=== PATIENT | female | born 2000 | race Caucasian/White ===

== ENCOUNTER 2021-05-25 08:44 | Emergency (ER) | payer BC ==
--- OUTSIDE RECORDS SUMMARY | 2021-05-25 08:46 | XMS REPORT | Continuity of Care Document ---
:2000 Author Organization [facility] t Address [address] [place] [address] Care Team Providers Name Role Phone Unavailable Unavailable Unavailable Problems Condition Condition Condition Status Onset Resolution Last Treating Co mments Source Name Details Category Date Date Treatment Clinician Date Encounter Encounter Diagnosis Active [facility] [place] [facility] Allergies, Adverse Reactions, Alerts This patient has no known allergies or adverse reactions. Medications This patient has no known medications. Immunizations Ordered Filled Immunization Date Status Comments [facility] e Immunization Name Name Flu Quadrivalent PF Flu Quadrivalent PF 2019-06-[address] [facility] 0.5 ml IM 0.5 ml IM 00:00:00 [facility] Procedures This patient has no known procedures. Encounters Start End Encounter Admission Attending Care Care Encounter Source Date/Time Date/Time Type Type Clinicians Facility Department ID 2019-06-27 2019-06-27 Outpatient Onel Siegel [id number] [facility] [address] 10:00:00 10:00:00 [facility] Results This patient has no known results.
[2021-05-25 10:05] LABS: SARS-COV-2 RT PCR NEGATIVE (NEGATIVE)
--- NOTE | 2021-05-25 10:09 | ER ---
Nurse's Notes [facility] Name: Ewa Cunningham Age: 21 yrs Sex: Female : 2000 Arrival Date: 05/25/2021 Time: 08:47 Bed 6 Private MD: Diagnosis: Rash and other nonspecific skin eruption;Acute pharyngitis, unspecified;Viral infection, unspecified Presentation: 05/25 08:56 Chief complaint: Patient states: sore throat and rash x2 days. Coronavirus screen: weiss Vaccine status: Patient reports receiving the 2nd dose of the covid vaccine. Ebola Screen: Patient denies travel to an Ebola-affected area in the 21 days before illness onset. No symptoms or risks identified at this time. Initial Sepsis Screen: Does the patient meet any 2 criteria? No. Patient's initial sepsis screen is negative. Does the patient have a suspected source of infection? No. Patient's initial sepsis screen is negative. Risk Assessment: Do you want to hurt yourself or someone else? Patient reports no desire to harm self or others. Onset of symptoms was May 23, 2021. 08:56 Method Of Arrival: Ambulatory weiss 08:56 Acuity: [place] 3 weiss Triage Assessment: 08:57 General: Appears in no apparent distress. Behavior is calm, cooperative. Pain: weiss Complains of pain in mouth. EENT: Reports pain throat Pain is 6 out of 10 on a pain scale. 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 - Social history:: Smoking status: Patient denies any tobacco usage or history of. Screenin:59 Abuse screen: Denies threats or abuse. Denies injuries from another. Nutritional weiss screening: No deficits noted. Tuberculosis screening: No symptoms or risk factors identified. Fall Risk None identified. Assessment: 08:59 Respiratory: Airway is patent Respiratory effort is even, unlabored, Breath sounds are weiss clear. EENT: Throat is reddened. Vital Signs: 08:56 BP 121 / 73; Pulse 97; Resp 18; Temp 97.9; Pulse Ox 100% on R/A; iw 09:15 BP 119 / 48; Pulse 89; Resp 16 S; Pulse Ox 98% on R/A; jg9 10:16 BP 121 / 70; Pulse 84; Resp 18; Pulse Ox 98% on R/A; weiss ED Course: 08:47 Patient arrived in ED. ds1 08:52 Rom Medina MD is Attending Physician. kdr 08:56 Chanel Florian is Primary Nurse. weiss 08:57 Triage completed. weiss 08:57 Arm band placed on right wrist. weiss 08:59 Patient has correct armband on for positive identification. Bed in low position. weiss 08:59 No provider procedures requiring assistance completed. weiss 09:18 Group A Streptococcus Rapid Sc Sent. weiss 09:18 Strep Sent. weiss 10:17 Patient did not have IV access during this emergency room visit. weiss Administered Medications: No medications were administered Outcome: 10:08 Discharge ordered by . kdr 10:16 Discharged to home ambulatory. weiss 10:16 Condition: good 10:16 Discharge instructions given to patient. 10:17 Patient left the ED. weiss Signatures: Rom Medina MD MD kdr Ceja, [facility] ds1 Ashly Bowden, RN RN Hortencia Mcdonnell Heather weiss Corrections: (The following items were deleted from the chart) 09:10 08:56 BP 121 / 73; Pulse 97bpm; Resp 18bpm; Pulse Ox 100% RA; weiss iw 09:25 09:18 CORONAVIRUS+MR.LAB.BRZ drawn and sent. weiss EDMS 09:25 09:18 Influenza Screen (A \T\ B)+BA.LAB.BRZ drawn and sent. weiss EDMS
--- NOTE | 2021-05-25 10:09 | EDPHYS ---
Physician Documentation [facility] Name: Ewa Cunningham Age: 21 yrs Sex: Female : 2000 Arrival Date: 05/25/2021 Time: 08:47 Bed 6 Private MD: ED Physician Rom Medina HPI: 05/25 09:34 This 21 yrs old Female presents to ER via Ambulatory with complaints of Sore Throat. kdr 09:34 The patient presents with sore throat. The patient presents with dysphagia, of both kdr solids and liquids. The patient describes throat pain as burning, constant, raw, scratchy. Onset: The symptoms/episode began/occurred gradually, 2 day(s) ago. Severity of symptoms: At their worst the symptoms were mild, in the emergency department the symptoms are unchanged. Modifying factors: The symptoms are alleviated by nothing, the symptoms are aggravated by swallowing, Patient's oral intake status: good. Associated signs and symptoms: Pertinent positives: Diffuse rash. The patient has not experienced similar symptoms in the past. 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 Patient presents with 3 to 4 days of rash and 2 days of sore throat. She denies fever cough cold or congestion. She was ill with Covid several months ago and recovered without sequela. She was seen by dermatology for the rash on Sunday. She was given a steroid injection and a topical steroid cream patient states that the rash is somewhat better today less red but still somewhat itchy. Patient is nontoxic-appearing is otherwise in good health. 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 - Social history:: Smoking status: Patient denies any tobacco usage or history of. ROS: 09:34 Constitutional: Negative for fever, chills, and weight loss, Eyes: Negative for injury, kdr pain, redness, and discharge, Neck: Negative for injury, pain, and swelling, Cardiovascular: Negative for chest pain, palpitations, and edema, Respiratory: Negative for shortness of breath, cough, wheezing, and pleuritic chest pain, Abdomen/GI: Negative for abdominal pain, nausea, vomiting, diarrhea, and constipation, Back: Negative for injury and pain, : Negative for injury, bleeding, discharge, and swelling, MS/Extremity: Negative for injury and deformity, Neuro: Negative for headache, weakness, numbness, tingling, and seizure activity. Psych: Negative for depression, anxiety, suicide ideation, homicidal ideation, and hallucinations, Allergy/Immunology: Negative for hives, rash, and allergies, Endocrine: Negative for neck swelling, polydipsia, polyuria, polyphagia, and marked weight changes, Hematologic/Lymphatic: Negative for swollen nodes, abnormal bleeding, and unusual bruising. 09:34 ENT: Positive for sore throat, Negative for ear pain, foreign body sensation, Gum pain 09:34 Skin: Positive for rash. Exam: 09:34 Constitutional: This is a well developed, well nourished patient who is awake, alert, kdr and in no acute distress. Head/Face: Normocephalic, atraumatic. Eyes: Pupils equal round and reactive to light, extra-ocular motions intact. Lids and lashes normal. Conjunctiva and sclera are non-icteric and not injected. Cornea within normal limits. Periorbital areas with no swelling, redness, or edema. Chest/axilla: Normal chest wall appearance and motion. Nontender with no deformity. No lesions are appreciated. Cardiovascular: Regular rate and rhythm with a normal S1 and S2. No gallops, murmurs, or rubs. Normal PMI, no JVD. No pulse deficits. Respiratory: Lungs have equal breath sounds bilaterally, clear to auscultation and percussion. No rales, rhonchi or wheezes noted. No increased work of breathing, no retractions or nasal flaring. Abdomen/GI: Soft, non-tender, with normal bowel sounds. No distension or tympany. No guarding or rebound. No evidence of tenderness throughout. Back: No spinal tenderness. No costovertebral tenderness. Full range of motion. 09:34 ENT: External ear(s): are unremarkable, Ear canal(s): are normal, TM's: are normal, Nose: is normal, Posterior pharynx: Tonsils: bilaterally enlarged, Whitish film on the both tonsils uvula midline otherwise minimal swelling, Voice: is normal, Breath odor: is normal. Vital Signs: 08:56 BP 121 / 73; Pulse 97; Resp 18; Temp 97.9; Pulse Ox 100% on R/A; iw 09:15 BP 119 / 48; Pulse 89; Resp 16 S; Pulse Ox 98% on R/A; jg9 10:16 BP 121 / 70; Pulse 84; Resp 18; Pulse Ox 98% on R/A; weiss MDM: 09:34 Data reviewed: vital signs, nurses notes, lab test result(s), radiologic studies. kdr Counseling: I had a detailed discussion with the patient and/or guardian regarding: the historical points, exam findings, and any diagnostic results supporting the discharge/admit diagnosis, lab results, the need for outpatient follow up. 10:08 Patient medically screened. kdr 05/25 08:53 Order name: Strep kdr 05/25 08:54 Order name: Group A Streptococcus Rapid Sc; Complete Time: 09:40 EDCA 05/25 09:23 Order name: Throat Culture EDCA 05/25 09:25 Order name: COVID-19/FLU A+B; Complete Time: 10:06 EDMS Administered Medications: No medications were administered Disposition Summary: 05/25/21 10:08 Discharge Ordered Location: Home kdr Problem: new kdr Symptoms: are unchanged kdr Condition: Stable kdr Diagnosis - Rash and other nonspecific skin eruption kdr - Acute pharyngitis, unspecified kdr - Viral infection, unspecified kdr Followup: kdr - With: Private Physician - When: 2 - 3 days - Reason: If symptoms return, Further diagnostic work-up, Recheck today's complaints, Continuance of care, Re-evaluation by your physician Discharge Instructions: - Discharge Summary Sheet kdr - Strep Throat, Adult kdr - Pharyngitis, [id number] kdr - Rash, Adult, [id number] kdr - Viral Respiratory Infection, [id number] kdr Forms: - Medication Reconciliation Form kdr - Thank You Letter kdr Signatures: Dispatcher [employer] [facility] Rom Medina MD MD kdr Ashly Bowden RN RN iw Kirsty-StagerChanel Corrections: (The following items were deleted from the chart) 09:25 08:54 Influenza Screen (A \T\ B)+BA.LAB.BRZ ordered. EDMS EDMS 09:25 08:54 CORONAVIRUS+MR.NITA.SANTIAGO ordered. EDMS EDMS
[2021-05-25 10:23] VITALS: TEMP 97.9
[2021-05-25 10:24] VITALS: O2SAT 98
[2021-05-25 10:25] VITALS: BP 121/70
== END 2021-05-25 10:17 | disposition home or self-care (01) ==
LOC: ER 08:44
DX: B34.9 Viral infection, unspecified (principal); R21 Rash and other nonspecific skin eruption; Z20.822 Contact with and (suspected) exposure to COVID-19
CPT/HCPCS: 87070; 87081; 0240U; 99283